=== PATIENT | female | born 1955 | race Caucasian/White ===

== ENCOUNTER 2022-12-23 14:26 | Outpatient (CLI) | payer MEDICARE, BC, SELFPAY | END 2022-12-23 14:27 | disposition home or self-care (01) | LOC: LAB 14:29 | PROVIDERS: PCP Orthopaedic Surgery; Visit Provider Orthopaedic Surgery | DX: Z01.818 Encounter for other preprocedural examination (principal) | CPT/HCPCS: 36415; 86850; 86900; 86901 ==

== ENCOUNTER 2022-12-26 06:43 | Day surgery (SDC) | payer MEDICARE, BC, SELFPAY ==
[2022-12-26] VITALS (25 sets, daily range): BP systolic 94–201; BP diastolic 45–86; PULSE 46–66; RESP 11–18; TEMP 36.1–36.6; O2SAT 90–100; BMI 24.6
--- OUTSIDE RECORDS SUMMARY | 2022-12-26 06:46 | XMS_ITS | Continuity of Care Document ---
Author Name Unknown Organization [facility] [address] [facility] [address] [place] [address] Phone Care Team Providers Care Medical Delivery Technician Name Role Phone Cornelio Flores DO Unavailable Unavailable Allergies, Adverse Reactions, Alerts Substance Reaction Status Criticality Penicillins Active No Information Medications Medication Instructions Dosage Effective Dates (start - stop) Status Comments levothyroxine 100 mcg tablet take 1 tablet by oral route every day 100 MCG - Active atenolol 50 mg-chlorthalidone 25 mg tablet take 1 tablet by oral route every day 1.00 tablet - Active acetaminophen 500 mg tablet take 2 tablet by oral route every day as needed 1000 MG - Active ibuprofen 200 mg tablet take 1 tablet by oral route every day as needed 200 MG - Active Vitamin D3 5,000 unit tablet take 1 by Oral route every day 1 - Active CALCIUM CARBONATE (unknown strength) take 1 Tablet by Oral route every day Not Available - Active Procedures Procedure Date Dna Antibody, Single Strand Dna Antibody, Barrow Nuclear Antigen Antibodies Office/Outpatient Visit, Est Office/Outpatient Visit, New Routine Venipuncture Specimen Handling Assay Of Serum Albumin Assay Of Ck (Cpk) Assay Of Creatinine Assay Alkaline Phosphatase Transferase (Ast) (Sgot) Assay Of Blood/Uric Acid Antinuclear Antibodies Advance Directives Directive Yes / No Effective Date File Name No Information Encounters Encounter Description Practice Location Reason(s) For Visit Diagnoses Date Provider Providers Copied on Encounter [facility] , [address], [place], [address], [place] tel:[phone] [facility] , No Information 6 Mark Grimes. [facility] [address], [place], [address], [place]. tel:[phone] Referring Provider: Cornelio Gross, [facility] [address], [place], [address]. tel:[phone] Office/Outpa tient Visit, Est [facility] , [address], [place], [address], [place] tel:[phone] [facility] , Musculoskele bradford pain (chief complaint)Mavis int Pain (chief complaint)Ab normal Lab Study (chief complaint) Abnormal immunologica l finding in serum, unspecifiedM yalgiaPain in unspecified jointPrimary generalized (osteo)arthr itisRaynaud' s syndrome without gangrene 6 Mark Grimes. [facility] [address], [place], [address], [place]. tel:[phone] Referring Provider: Cornelio Gross, [facility] [address], [place], [address]. tel:[phone] Office/Outpa tient Visit, New [facility] , [address], [place], [address], [place] tel:[phone] [facility] , Dermatomyosi tis (chief complaint)El evated CPK (chief complaint)Mu sculoskeleta l Pain (chief complaint) Pain in unspecified jointDermato polymyositis , unspecified, organ involvement unspecifiedP ain in right hand May-0 3-201 6 Mark Grimes. [facility] [address], [place], [address], [place]. tel:[phone] Referring Provider: [facility] [address] [place], [address]. tel:[phone] [facility] , [address], [place], [address], [place] tel:[phone] [facility] , No Information Mark Grimes. [facility] [address], [place], [address], [place]. tel:[phone] Family History Family Member Type Diagnosis Age At Onset Mother Problem (finding) osteoporosis Payers Payer name Insurance type Covered alliance party ID Lynnette hwang(s) [facility] [id number] Social History Type Description Quantity Date Captured Comments Sex Female Smoking Status No Information Chief Complaint And Reason For Visit No Information Reason For Referral Reason For Referral No Information Plan Of Treatment Date Type Action Status Goal Tobacco cessation counseling completed Goal Tobacco cessation counseling completed History Of Present Illness Encounter Date Complaint History Of Prese nt Illness Musculoskeletal pain Joint Pain Abnormal Lab Study Dermatomyositis Elevated CPK Musculoskeletal Pain Functional Status Date Functional Assessmen t No Information Instructions Date Instruction Additional Infor mation No Information Assessments Type Assessment Date No Information Patient Care Teams Name Effective Dates (start - stop) Status Members No Information
[2022-12-26] MEDS: OXYCODONE (CR) 10 MG TAB.ER.12H PO (07:21)
[2022-12-26] MEDS: CELECOXIB 200 MG CAPSULE PO (07:21)
[2022-12-26] MEDS: ACETAMINOPHEN 500 MG TABLET 1000 MG PO ×3 (07:21→22:35)
[2022-12-26] MEDS: LACTATED RINGERS 1000 ML 1,000 ML 100 ML IV ×2 (07:30→10:13)
[2022-12-26] MEDS: SODIUM CHLORIDE 0.9 % (FLUSH) 10 ML SYRINGE IVF (07:30)
[2022-12-26] MEDS: fentaNYL 100 MCG/2 ML inj IVP (07:43)
[2022-12-26] MEDS: MIDAZOLAM HCL 1 MG/ML inj IVP (07:43)
--- NOTE | 2022-12-26 08:00 | CRLHL7_ITS ---
For Patients: As a result of the Century Cures Act, medical imaging exams and procedure reports are released immediately into your electronic medical record. You may view this report before your referring provider. If you have questions, please contact your health care provider. INDICATION: Left hip arthroplasty. Intraoperative evaluation. TECHNIQUE: Fluoroscopically guided intraoperative evaluation at the time of a left hip arthroplasty. FINDINGS: 75.2 seconds fluoroscopy time utilized intraoperatively. Left hip arthroplasty. Two acetabular screws are present. IMPRESSION: 75.2 seconds fluoroscopy time utilized intraoperatively. Dictated by Avtar Watson MD @ 12/26/2022 11:52:09 AM (Electronically Signed)
[2022-12-26] MEDS: TRANEXAMIC ACID 100 MG/ML INJ 1000 MG IV (08:10)
[2022-12-26] MEDS: CEFAZOLIN 2 GM INJ IVP (08:10)
--- NOTE | 2022-12-26 08:38 | W.ANESCHARGE ---
Anesthesia Charges Start Date/Time Anesthesia Start Date: 12/26/22 Anesthesia Start Time: 07:56 Stop Date/Time Anesthesia Stop Date: 12/26/22 Anesthesia Stop Time: 11:33
--- NOTE | 2022-12-26 08:39 | P.NB_ITS ---
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 Images saved: Yes Medications given in 5ml increments after negative aspiration: Ropivicaine %: 0.5 mL: 30 Needle gauge: 20 Decadron (mg): 10 Precedex (mcg): 25 Patient tolerated procedure well: Yes Additional comments: Needle noted below psoas tendon needle noted adjacent to LFCN Block Charges Block Charge (with Pro Fee): Other Periph Nerve Block Use of Ultrasound Machine for Block: Yes- US Guidance/pain block
--- NOTE | 2022-12-26 08:40 | SUR.OPER ---
PATIENT QUESTIONS ANSWERED SATISFACTORILY PREOPERATIVELY. PATIENT BROUGHT TO OR #3 PER CART AFTER ADMINISTRATION OF A BLOCK. Patient positioned supine on OR #3 bed. The perioperative team supported arms bilaterally on arm boards. Final approval of positioning by surgeon.
--- NOTE | 2022-12-26 10:47 | CRLHL7_ITS ---
For Patients: As a result of the Century Cures Act, medical imaging exams and procedure reports are released immediately into your electronic medical record. You may view this report before your referring provider. If you have questions, please contact your health care provider. INDICATION: Follow up left hip arthroplasty. TECHNIQUE: AP pelvis and cross table lateral view of the left hip performed postoperatively. FINDINGS: Left hip arthroplasty. The components are adequately aligned and well seated. Two surgical screws traverse the superior left acetabulum. Air within the soft tissues and joint space related to the surgery. Irregularity of the left superior pubic ramus and possibly inferior pubic ramus may reflect old fractures. Please correlate clinically. IMPRESSION: Left hip arthroplasty. The components are adequately aligned and well seated. Dictated by Avtar Watson MD @ 12/26/2022 3:18:32 PM (Electronically Signed)
--- NOTE | 2022-12-26 10:51 | P.ORPRC_ITS ---
Procedure Note Procedure: PREOPERATIVE DIAGNOSIS: Left hip osteoarthritis POSTOPERATIVE DIAGNOSIS: Left hip osteoarthritis NAME OF OPERATION: Left total hip arthroplasty SURGEON: Femi Bañuelos MD ASSEMBLER CHASSIS: Kathy Ayala PA-C, KARLEY Hanley IMPLANTS: 1. J[employer]J Allen # 44 multi hole ingrowth cup 2. 28 x 44 neutral polyethylene 3. Actis #4 standard collared ingrowth stem 4. 28+1.5 ceramic femoral head ANESTHESIA: General ESTIMATED BLOOD LOSS: 500 cc COMPLICATIONS: None SPECIMENS: None DRAINS: None PREOPERATIVE ANTIBIOTICS: Ancef 2 grams INDICATIONS: The patient is a 67-year-old with a longstanding history of severe, unrelenting left hip pain secondary to end-stage left hip osteoarthritis. Despite appropriate nonoperative management, including activity modification, use of an assist device, anti-inflammatories, [id number] pain medication, physical therapy and injections, they continue to have pain and disability. Operative intervention was offered. The risks, benefits and expected outcomes were discussed in detail. These included but were not limited to: Infection, bleeding, injury to blood vessel or nerve, venous thromboembolism. All questions were answered to their satisfaction. Use of an observation assistant was necessary throughout the case for patient positioning and safety, soft tissue retraction and closure. A modifier 22 should be added to this case. With the amount of bone loss on the acetabular side reconstruction was necessary. This more than doubled the time typically required to complete the case. PROCEDURE: The patient was placed supine on the [place] table. General anesthesia was administered. The observation assistant made sure the patient was properly positioned. The left hip was prepped and draped in the usual sterile fashion. The image intensifier was brought in for a perfect AP pelvis and a perfect double tear drop AP view of each hip which were used for intraoperative templating with our fluoroscopic guide. An oblique incision was made 3 cm distal and 3 cm lateral to the anterior superior iliac spine. The observation assistant retracted the soft tissues to protect them. Subcutaneous dissection was taken with electrocautery to the superficial fascia. The fascia was divided in line with the incision. Blunt dissection was carried medially to the tensor fascia marce and sartorius interval. Deep dissection was carried with electrocautery. The circumflex vessels were cauterized and divided. The capsule was exposed and then divided in a T-fashion, tagged with #1 Ethibond sutures. Retractors were placed in the joint, held by the observation assistant. The corkscrew was was not used, in order to preserve the head to use as a graft. The neck cut was made just proximal to the intertrochanteric ridge. The femoral head was removed intact, taken to the back table for preparation as graft he. Acetabular retractors were placed, held by the observation assistant. The labrum was sharply debrided. The capsule was released. The 36 mm reamer was used in the pseudo acetabulum to bleeding bone. Articular surface of the femoral head was roughed up with oscillating saw. We then placed it in the pseudo acetabulum and provisionally fixed it with 2 guide pins. Guide pin placement was confirmed with the image intensifier in multiple views. We used the cannulated drill over the more central, lateral guide pin. We then placed a 50 mm AcuTrak screw. This was countersunk in the graft. The other guide pin was removed. We elected not to place another screw in the graft, for fear of fracturing it. The 37 mm reamer to the true medial wall of the bill moore's slough acetabulum. We then enlarged in 2 mm increments using the image intensifier for our reamer placement. We impacted the cup which had good purchase. We placed a 6.5 x 45 mm screw through the graft and up the ilium. Its placement was checked with the image intensifier in multiple planes. We placed a 2nd 6.5 mm x 20 mm screw, posteriorly into the ischium. Its placement was confirmed with the image intensifier in multiple views. The polyethylene was impacted. Attention was then turned to the proximal femur. The limb was placed in 140 degrees of external rotation, maximum extension and adduction. A significant amount of time was spent releasing the capsule to allow us to deliver the femur into the wound and complete the femoral side safely. Retractors were held by the observation assistant throughout the femoral preparation. The experimental box tester and canal finder were used. Broaches were used to a stable size. The calcar reamer was used. Trial components were placed. The hip was reduced and was found to be stable with appropriate soft tissue tension. Length and offset had been nicely restored using the image intensifier and our fluoroscopic guide. Trial components were removed. The stem was impacted. As we seated the stem on the calcar we cracked it down to the level of the lesser trochanter. Therefore, we placed the extractor on the stem and tapped it out of the canal. We placed a super cable just distal to our neck cut, proximal to the lesser trochanter. A 2nd super cable was placed just distal to the lesser trochanter. This anatomically reduced the fracture. We then tapped the femoral stem back into the canal. This did not gap the fracture. The stem is rotationally stable and is unable to be extracted with significant hand force on the trunnion. We placed the femoral head. We tested stability of the stem again by trying to extract it by hand. This was not possible. Again, the hip was reduced and was found to be stable with appropriate soft tissue tension. Length and offset had been nicely restored. The observation assistant did a three minute dilute Betadine solution soak. The observation assistant irrigated the wound with 3 liters of normal saline via pulse lavage. The observation assistant repaired the anterior capsule with a #1 Vicryl and our previously placed Ethibond sutures. The observation assistant closed the fascia over the tensor fascia marce with a #1 PDO Stratafix, subcutaneous tissues with 2-0 Vicryl, skin with a running 3-0 Stratafix and glue. A dry dressing was applied by the observation assistant. Sponge and needle counts were correct x 2. The patient tolerated the procedure well; there were no apparent complications. They were awakened and extubated in the operating room, sent to the Post-Anesthesia Care Unit in satisfactory condition. PLAN: 1. The patient will be mobilized with physical therapy, weight-bearing as tolerates 2. Xarelto x 5 days then aspirin x 30 days will be used for DVT prophylaxis 3. The patient will be discharged once medically appropriate
--- NOTE | 2022-12-26 12:22 | W.ANESCHARGE ---
Anesthesia Charges Start Date/Time Anesthesia Start Date: 12/26/22 Anesthesia Start Time: 07:56 Stop Date/Time Anesthesia Stop Date: 12/26/22 Anesthesia Stop Time: 11:33
[2022-12-26] MEDS: CEFAZOLIN 2 GM in 0.9 % SODIUM CHLORIDE Mini-bag 100 ML IVPB ×2 (14:17→22:38)
--- NOTE | 2022-12-26 16:04 | PC.NURSE ---
Pt arrived from PACU via hospital bed with 2 staff members to room 256 @ 1215pm s/p LTHA anterior approach with Dr. Bañuelos. Please see initial assessment from PACU and frequent post op VS. Pt has denied pain since arrival to floor. Oxygen @ 2 LITERS/NC d/to drop in sats when pt falls asleep, snoring heard w/deep sleep and sats 67-70%. Dr. Ayala aware, new oxygen probe obtained and teaching on IS. She had an oxymask on briefly between 1300 and 1330 d/to low sats. Small amt of CL tray for lunch d/to c/o sore throat. Gustabo Diana visiting at bedside. Pt received 2gms of IV Ancef per post op routine. Hospitalist plans to evaluate patient post op. Report to Maria Fernanda Durant RN for evening shift. Initiated bed alarms to prevent falls.
--- NOTE | 2022-12-26 16:32 | P.IMCN_ITS ---
Date of Consult Patient: Alexis Patient Consult date: 12/26/22 Requesting Physician: Orthopedics Primary Care Provider: Eva He MD Consult Narrative Reason for consult: Management of medical problems following left hip arthroplasty Narrative: Seda Gavin is a 67 year old female who underwent left total hip arthroplasty with Dr. Bañuelos today. He is requesting consultation for management of medical problems. Postoperatively patient reports generally doing well. She is having no significant pain. She has no dyspnea but nursing staff note she is hypoxic. Her O2 sats are in the 80s on room air and in the 90s on 2 L per nasal cannula. She is relatively sleepy. She does have a history of pneumonia diagnosed in October when she was hospitalized in [place]. She subsequently has had follow-up chest x-ray, most recently December 16, which showed resolution of her pneumonia and minimal basilar fibrosis. She smokes 5 cigarettes per day as well. No other recent illness. Review of Systems Narrative: Primary recent issues are her pneumonia 2 months ago with symptoms now resolved and her ongoing severe left hip arthritis which has has been quite disabling. No personal or family history of problems with anesthesia, bleeding disorder or thrombophilia [facility] Medical History (Updated 12/26/22 @ 16:46 by Anirudh Ayala MD) Smoking ?F17.200 - Nicotine dependence, unspecified, uncomplicated (ICD-10) Osteoporosis ?M81.0 - Age-related osteoporosis without current pathological fracture (ICD- 10) Pneumonia ?J18.9 - Pneumonia, unspecified organism (ICD-10) Myasthenia gravis ?G70.00 - Myasthenia gravis without (acute) exacerbation (ICD-10) Hypothyroid ?E03.9 - Hypothyroidism, unspecified (ICD-10) Hypertension ?I10 - Essential (primary) hypertension (ICD-10) Surgical History (Updated 12/26/22 @ 16:40 by Anirudh Ayala MD) H/O: hysterectomy ?Z90.710 - Acquired absence of both cervix and uterus (ICD-10) S/P trigger finger release (12/17/07) ?Z98.890 - Other specified postprocedural states (ICD-10) Family History Father Myocardial infarction Brother High blood pressure Mother Dementia Social History (Updated 12/26/22 @ 16:41 by Anirudh Ayala MD) Narrative: She lives alone in her own home in [place]. She has 4 steps to get into her house. She has temporarily set up to live on 1 level until her mobility improves. Her sister will be staying with her during the day and she has hired an aide to stay with her at night postoperatively. Code status is full. Son is healthcare power of tax associate attorney. She smokes about 5 cigarettes a day. She does not drink alcohol. What is your current living situation?: I presently have a place to live Problems where you live: no known problems Problems where you live details: none In the past 12 months, utilities in danger of being shut off: no In the past 12 mos, have been you worried that your food would run out before you had money to buy more?: never true In the past 12 mos, the food you bought just didn't last and you didn't have money to buy more?: never true Smoking Status: Current every day smoker What tobacco products do you use: cigarettes Years smoked: 40 Do you use any of these nicotine containing products: None Second hand tobacco smoke exposure: No How often do you have a drink containing alcohol: never AUDIT-C Alcohol total score: 0 Non-prescribed substance use: denies use How often does anyone, including family, friends and others, physically hurt you : never How often does anyone, including family, friends and others, insult or talk down to you: never How often does anyone, including family, friends and others, threaten you with harm: never How often does anyone, including family, friends and others, scream or curse at you: never service: No Meds Home Medications and Allergies Home Medications Medication Instructions Recorded Confirmed Type levothyroxine 100 mcg tablet 100 mcg PO DAILY 08/16/22 12/26/22 History atenolol 100 mg tablet 100 mg PO DAILY 12/26/22 12/26/22 History atorvastatin 10 mg tablet (Lipitor) 10 mg PO QHS 12/26/22 12/26/22 History atorvastatin 40 mg tablet 40 mg PO QPM 12/26/22 12/26/22 History losartan 50 mg tablet 50 mg PO DAILY 12/26/22 12/26/22 History Home Medication Comments: Occasionally takes ibuprofen and acetaminophen. Was on Voltaren 75 mg daily but held this a week before surgery Takes calcium and vitamin-D daily Uses an albuterol inhaler about once a day Allergies Allergy/AdvReac Type Severity Reaction Status Date / Time amlodipine Allergy Verified 12/26/22 07:33 amoxicillin AdvReac Verified 12/26/22 07:33 Erythromycin AdvReac Uncoded 08/21/22 13:52 Exam Narrative: Exam Narrative: She is sleepy but arouses to voice and touch. She has then alert and oriented to her circumstances. Eyes are normal. Oropharynx normal. Neck is supple without mass or adenopathy. Respirations are clear to auscultation except bibasilar crackles noted. These do not resolve with deep breathing and coughing. No wheezing. Cardiovascular: S1, S2, regular rate and rhythm. Abdomen: Bowel sounds active. Abdomen is soft without tenderness or mass. Extremities with intact pulses and sensation. She moves all 4 extremities well. Const: Vital Signs, click to edit/add: Vital Signs - 24 hr 12/26/22 07:30 12/26/22 07:40 12/26/22 07:45 Temperature 97.9 F Pulse Rate 60 60 61 Pulse Rate [Left P ulse Oximeter] Respiratory Rate 16 16 16 Blood Pressure 194/86 H 201/85 H 141/70 H Blood Pressure [Ri ght Arm] Pulse Oximetry 96 96 91 Oxygen Delivery Me thod Room Air Nasal Cannula Nasal Cannula Oxygen Flow Rate 2 4 12/26/22 07:50 12/26/22 10:30 12/26/22 11:30 Temperature 97 F L 97.7 F Pulse Rate 51 L 51 L 48 L Pulse Rate [Left P ulse Oximeter] Respiratory Rate 16 16 16 Blood Pressure 142/74 H 104/50 L Blood Pressure [Ri ght Arm] 127/56 L Pulse Oximetry 96 98 Oxygen Delivery Me thod Nasal Cannula Nasal Cannula Aerosol Mask Oxygen Flow Rate 4 10 12/26/22 11:35 12/26/22 11:40 12/26/22 11:45 Temperature Pulse Rate 46 L 46 L 47 L Pulse Rate [Left P ulse Oximeter] Respiratory Rate 14 11 L 11 L Blood Pressure 104/50 L 94/45 L 98/47 L Blood Pressure [Ri ght Arm] Pulse Oximetry 100 100 100 Oxygen Delivery Me thod Room Air Oxygen Flow Rate 12/26/22 11:50 08/24/23 11:55 12/26/22 12:00 Temperature 97.4 F L 97.4 F L Pulse Rate 51 L 55 L 51 L Pulse Rate [Left P ulse Oximeter] Respiratory Rate 12 12 14 Blood Pressure 123/54 L 102/46 L 107/53 L Blood Pressure [Ri ght Arm] Pulse Oximetry 99 95 96 Oxygen Delivery Me thod Oxygen Flow Rate 12/26/22 12:05 12/26/22 12:16 12/26/22 12:17 Temperature 97 F L Pulse Rate 50 L Pulse Rate [Left P ulse Oximeter] 59 L 50 L Respiratory Rate 14 16 16 Blood Pressure 130/59 L Blood Pressure [Ri ght Arm] 120/51 L 127/59 L Pulse Oximetry 94 99 93 Oxygen Delivery Me thod Nasal Cannula Room Air Oxygen Flow Rate 2 12/26/22 12:30 12/26/22 12:45 12/26/22 13:00 Temperature Pulse Rate Pulse Rate [Left P ulse Oximeter] 48 L 48 L 51 L Respiratory Rate 16 16 16 Blood Pressure Blood Pressure [Ri ght Arm] 123/53 L 116/63 111/49 L Pulse Oximetry 90 99 94 Oxygen Delivery Me thod Nasal Cannula Nasal Cannula Nasal Cannula Oxygen Flow Rate 2 2 12/26/22 14:00 Temperature Pulse Rate Pulse Rate [Left P ulse Oximeter] 59 L Respiratory Rate 16 Blood Pressure Blood Pressure [Ri ght Arm] 116/51 L Pulse Oximetry 98 Oxygen Delivery Me thod Nasal Cannula Oxygen Flow Rate 2 Documenting provider has reviewed patient's vital signs: yes Imaging Chest x-ray: Radiologist's impression: 12/16/2022 INDICATION: Community acquired pneumonia of the right lower lobe of the lung. ? TECHNIQUE: Two-view chest. ? COMPARISON: November 27, 2022. ? FINDINGS: Both lungs are mildly hyperinflated. Attenuation of the pulmonary vascularity in the upper lobes. Minimal basilar fibrosis. Calcified granuloma left lung base. Overall heart size is toward the upper limit of normal. There is no evidence for congestive heart failure or active pneumonia. Lower thoracic/lumbar scoliotic curvature. Mild anterior wedging/partial compression fracture of approximately T5, T7, and T9. These appear chronic. ? IMPRESSION: Chronic changes as described. No acute cardiopulmonary process identified. No evidence for active pneumonia. ? Assessment and Plan Assessment and plan (1) Status post left hip replacement: Problem comment: 12/26/2022 Dr. Bañuelos Status: Acute (2) Hypoxia: Problem comment: Postoperative hypoxia likely due to combination of factors including sedation from surgery as well as some underlying lung disease, possibly fibrosis or COPD. Currently asymptomatic but requiring 1-2 L per nasal cannula. Anticipate this need for oxygen will resolve over the next day. Status: Acute (3) Myasthenia gravis: Problem comment: Twenty years ago she had relatively mild myasthenia gravis involving her eyes only. This causes some diplopia. She was briefly treated with prednisone and has not been treated long-term for this. She apparently still has antibodies but no symptoms and no treatment. I do not think current hypoxia is due to respiratory failure from myasthenia gravis. Status: Acute (4) Pneumonia: Problem comment: Hospitalized for pneumonia in October 2022. Radiographically and clinically resolved by December 2022 Status: Acute (5) Osteoporosis: Problem comment: Plans to initiate anti resorptive therapy with her primary care doctor. Status: Acute (6) Smoking: Status: Acute (7) Hypertension: Problem comment: Blood pressures are soft postoperatively. Cut beta-marcelino in half and hold losartan for the 1st day postop Status: Acute Plan Patient will be treated in the hospital for postoperative pain. Routine therapies. Monitoring of vital signs. Evaluation and management of mild hypoxia. Anticipate discharge to home if doing well tomorrow. Total time spent today is 55 minutes, 40 minutes in coordination of care discussing with patient son and other providers ongoing evaluation management of postoperative care
[2022-12-26] MEDS: OXYCODONE 5 MG TABLET PO ×2 (18:23→22:37)
[2022-12-26] MEDS: LACTATED RINGERS 1000 ML 1,000 ML 75 ML IV (18:24)
--- NOTE | 2022-12-26 19:31 | PC.NURSE ---
End of shift-- Pleasant and cooperative, alert and oriented patient. VSS and pt is afebrile. SPO2 noted to be as low as 83% on RA. Maintained >90% on 2L per n.c. Dressing to left hip is C/D/I and CMS is WNL. She c/o pain which she rated as high as 8 out of 10 with ambulation and was given 2.5mg of Oxycodone in addition to scheduled Tylenol. Crackles auscultated in bilateral bases of lungs posteriorly and MD is aware. Pt encouraged to use IS. She denied nausea and ate a regular diet without difficulty. Pt voided 300ml of concentrated urine this shift. She was up to the chair and commode with assist of 1, belt and walker and tolerated it fair. Report to MONY Hamilton.
[2022-12-26] MEDS: SENNOSIDES 1 TAB TABLET 2 TAB PO (22:37)
[2022-12-26] MEDS: ATORVASTATIN CALCIUM 40 MG TABLET PO (22:38)
[2022-12-27 03:00] VITALS: BP 133/66; PULSE 58; RESP 18; TEMP 36.6; O2SAT 98
[2022-12-27 06:39] LABS: Basophils Percent Auto 0.1 % (0.0-3.0); Eosinophils Percent Auto 0.1 % (0.0-7.0); Hematocrit 32.9 % (33.0-51.0); Hemoglobin* 10.7 gm/dL (12.0-16.0); Immature Granulocytes Pct Auto 0.3 %; Mean Corpuscular HGB Conc 33 gm/dL (32-36); Mean Corpuscular Hemoglobin 32 pg (26-34); Mean Corpuscular Volume 99 fL (80-100); Monocytes Percent Auto 9.7 % (0.0-11.0); Neutrophils Percent Auto 75.8 % (42.0-72.0); Platelet Count* 311 K/uL (140-440); RDW Coefficient of Variation % 13.7 % (11.5-15.5); Red Blood Count 3.32 m/uL (4.00-5.20); White Blood Count* 14.47 K/uL (4.50-11.00)
[2022-12-27] MEDS: OXYCODONE 5 MG TABLET PO (06:40)
[2022-12-27] MEDS: LEVOTHYROXINE 100 MCG TABLET PO (06:40)
[2022-12-27 06:42] LABS: Slide Review Reflex No
[2022-12-27 06:54] LABS: Potassium* 4.4 mmol/L (3.6-5.1); Sodium* 130 mmol/L (135-149)
--- NOTE | 2022-12-27 06:54 | PC.NURSE ---
Pt pleasant and cooperative. Up to the chair last eveing for about 3hr. She tolerated this well. Up with SB assist andgait belt and walker. Pain well controlled with Tylenol and oxycodone. Alona is CDI. Plan to go home today with some assistance from a home health worker,
[2022-12-27 06:57] LABS: Blood Urea Nitrogen* 20 mg/dL (7-30); Creatinine* 0.5 mg/dL (0.5-1.5); Est. Creatinine Clearance* 45.88; Estimated Glomerular Filt Rate 102 ml/min
[2022-12-27 07:00] VITALS: BP 123/59; PULSE 73; RESP 16; TEMP 36.6; O2SAT 89
--- NOTE | 2022-12-27 07:45 | PM.ORPN ---
Subjective Subjective Time Seen by Provider: 07:45 Date Seen: 12/27/22 Principal diagnosis: Status post left hip replacement, severe deformity 12/26/2022 Interval history: Seda is comfortable this morning. She is looking forward to discharging to home today. She has 4 steps to get into her home. Ortho Exam Narrative Exam Narrative: Alert and oriented x3. Patient is in no acute distress. Converses without labored breathing. Hearing is grossly intact. Ambulates with a walker. Examination of the left hip shows the dressing is intact. CMS intact left lower extremity. No foot drop. Very minimal edema about the hip. No bruising. Scab over the knee (from psoriasis she states) no erythema. No sign of infection left lower extremity. Bilateral calves are soft and nontender. Const Vital Signs, click to edit/add: Vital Signs - 24 hr 12/26/22 07:50 12/26/22 10:30 12/26/22 11:30 Temperature 97 F L 97.7 F Pulse Rate 51 L 51 L 48 L Pulse Rate [Left Dorsalis Pedis] Pulse Rate [Left Pulse Oximeter] Respiratory Rate 16 16 16 Blood Pressure 142/74 H 104/50 L Blood Pressure [Right Arm] 127/56 L Pulse Oximetry 96 98 Oxygen Delivery Method Nasal Cannula Nasal Cannula Aerosol Mask Oxygen Flow Rate 4 10 12/26/22 11:35 12/26/22 11:40 12/26/22 11:45 Temperature Pulse Rate 46 L 46 L 47 L Pulse Rate [Left Dorsalis Pedis] Pulse Rate [Left Pulse Oximeter] Respiratory Rate 14 11 L 11 L Blood Pressure 104/50 L 94/45 L 98/47 L Blood Pressure [Right Arm] Pulse Oximetry 100 100 100 Oxygen Delivery Method Room Air Oxygen Flow Rate 12/26/22 11:50 12/26/22 11:55 12/26/22 12:00 Temperature 97.4 F L 97.4 F L Pulse Rate 51 L 55 L 51 L Pulse Rate [Left Dorsalis Pedis] Pulse Rate [Left Pulse Oximeter] Respiratory Rate 12 12 14 Blood Pressure 123/54 L 102/46 L 107/53 L Blood Pressure [Right Arm] Pulse Oximetry 99 95 96 Oxygen Delivery Method Oxygen Flow Rate 12/26/22 12:05 12/26/22 12:16 12/26/22 12:17 Temperature 97 F L Pulse Rate 50 L Pulse Rate [Left Dorsalis Pedis] Pulse Rate [Left Pulse Oximeter] 59 L 50 L Respiratory Rate 14 16 16 Blood Pressure 130/59 L Blood Pressure [Right Arm] 120/51 L 127/59 L Pulse Oximetry 94 99 93 Oxygen Delivery Method Nasal Cannula Room Air Oxygen Flow Rate 2 12/26/22 12:30 12/26/22 12:45 12/26/22 13:00 Temperature Pulse Rate Pulse Rate [Left Dorsalis Pedis] Pulse Rate [Left Pulse Oximeter] 48 L 48 L 51 L Respiratory Rate 16 16 16 Blood Pressure Blood Pressure [Right Arm] 123/53 L 116/63 111/49 L Pulse Oximetry 90 99 94 Oxygen Delivery Method Nasal Cannula Nasal Cannula Nasal Cannula Oxygen Flow Rate 2 2 12/26/22 14:00 12/26/22 15:00 12/26/22 15:00 Temperature Pulse Rate Pulse Rate [Left Dorsalis Pedis] Pulse Rate [Left Pulse Oximeter] 59 L 58 L Respiratory Rate 16 16 16 Blood Pressure Blood Pressure [Right Arm] 116/51 L 134/69 Pulse Oximetry 98 96 Oxygen Delivery Method Nasal Cannula Nasal Cannula Oxygen Flow Rate 2 2 12/26/22 16:00 12/26/22 17:00 12/26/22 18:00 Temperature 97 F L Pulse Rate Pulse Rate [Left Dorsalis Pedis] Pulse Rate [Left Pulse Oximeter] 60 61 65 Respiratory Rate 16 16 16 Blood Pressure Blood Pressure [Right Arm] 136/62 143/67 H 135/53 L Pulse Oximetry 96 96 96 Oxygen Delivery Method Nasal Cannula Nasal Cannula Nasal Cannula Oxygen Flow Rate 2 2 2 12/26/22 19:30 12/26/22 23:00 12/27/22 03:00 Temperature 97.6 F 97.8 F 97.8 F Pulse Rate Pulse Rate [Left Dorsalis Pedis] 66 Pulse Rate [Left Pulse Oximeter] 61 58 L Respiratory Rate 18 18 18 Blood Pressure Blood Pressure [Right Arm] 120/52 L 135/56 L 133/66 Pulse Oximetry 94 96 98 Oxygen Delivery Method Nasal Cannula Nasal Cannula Nasal Cannula Oxygen Flow Rate 2 2 2 Assessment and Plan Assessment and plan (1) Status post left hip replacement: Problem details: 12/26/2022 Dr. Bañuelos Status: Acute Assessment and Plan: Plan for discharge is today to home if they meet discharge criteria. DVT prophylaxis includes Xarelto 10 mg daily for total of 5 days, then aspirin 81 mg twice daily for 30 days, Luis stockings x1 month may remove for 1 hr per day, frequent ambulation Remove dressing 1 week. Observe wound and phone Orthopedics with any questions or concerns Use Ice on operative hip unrestricted. Return to clinic in 1 week with PA for a wound check Return to clinic in 6 weeks with surgeon Minimize narcotic use. Wean off and discontinue soon as possible. Activities as tolerated. No strenuous activity. Attend outpt PT. she states she has been using a walker for a year. We discussed general strengthening is also necessary with PT. (2) Hypoxia: Problem details: Postoperative hypoxia likely due to combination of factors including sedation from surgery as well as some underlying lung disease, possibly fibrosis or COPD. Currently asymptomatic but requiring 1-2 L per nasal cannula. Anticipate this need for oxygen will resolve over the next day. Status: Acute (3) Myasthenia gravis: Problem details: Twenty years ago she had relatively mild myasthenia gravis involving her eyes only. This causes some diplopia. She was briefly treated with prednisone and has not been treated long-term for this. She apparently still has antibodies but no symptoms and no treatment. I do not think current hypoxia is due to respiratory failure from myasthenia gravis. Status: Acute (4) Pneumonia: Problem details: Hospitalized for pneumonia in October 2022. Radiographically and clinically resolved by December 2022 Status: Acute (5) Osteoporosis: Problem details: Plans to initiate anti resorptive therapy with her primary care doctor. Status: Acute (6) Smoking: Status: Acute (7) Hypertension: Problem details: Blood pressures are soft postoperatively. Cut beta-marcelino in half and hold losartan for the 1st day postop Status: Acute
[2022-12-27] MEDS: RIVAROXABAN 10 MG TABLET PO (09:04)
[2022-12-27] MEDS: SENNOSIDES 1 TAB TABLET 2 TAB PO (09:04)
[2022-12-27] MEDS: atenoloL 50 MG TABLET PO (09:04)
[2022-12-27] MEDS: ACETAMINOPHEN 500 MG TABLET 1000 MG PO (10:06)
[2022-12-27 10:31] VITALS: O2SAT 90; O2SAT 94
--- NOTE | 2022-12-27 11:07 | W.PM.CROSSCO ---
Subjective Subjective Date Seen: 12/27/22 Principal diagnosis: Status post left hip replacement, severe deformity 12/26/2022 Interval history: Patient seen on day of discharge given hypoxia with activity. Sister at bedside during visit. She was seen by respiratory therapy and 3 part oxygen testing did not reveal a need for supplemental oxygen upon discharge. Recommend self-monitoring with home O2 monitor (patient has one at home) continued IS throughout the day when home, close f/u with PCP. Objective Objective Data Details: GEN: Alert and oriented, sitting comfortably in bed and nontoxic in appearance. Speaking in full sentences, on room air HEENT: EOMIs bilaterally, no scleral icterus CV: RRR, No concerning murmurs R: LCTA bilaterally without concerning wheezing, air movement adequate Ext: wwp, no concerning edema Skin: No concerning skin lesions or rashes on exposed skin Neuro: Nonfocal Psych: Appropriate Assessment and Plan Assessment and plan (1) Hypoxia: Problem comment: - likely multifactorial, appears patient has underlying lung disease (also recently hospitalizated for PNA) - did not meet criteria for home O2 with RT - self monitoring at home, continue IS, close PCP f/u - patient and sister verbalize understanding of plan on d/c (12/27/22) Status: Acute Plan - per above - otherwise appropriate for d/c home post L NARGIS
--- NOTE | 2022-12-27 11:20 | PC.SOCIAL ---
Discharge Planning: met with patient, Seda and sister, Mary. Mary will be staying with her sister for a while to help care for her. Seda's son and another friend are also available to help. SisterMary will assist Seda getting to and from therapy. Social work to follow up as needed.
== END 2022-12-27 11:30 | disposition home or self-care (01) ==
LOC: OR 06:45 → MEDSURG 06:50
PROVIDERS: PCP Internal Medicine; Visit Provider Orthopaedic Surgery
PROC: (CPT 27130; principal; 2022-12-26 08:00)
DX: M16.12 Unilateral primary osteoarthritis, left hip (principal); G89.18 Other acute postprocedural pain; R09.02 Hypoxemia; I10 Essential (primary) hypertension; M81.0 Age-related osteoporosis without current pathological fracture; F17.210 Nicotine dependence, cigarettes, uncomplicated
CPT/HCPCS: 27130; 1214; 36415; 64450; 73501; 76000; 76942; 82565; 84132; 84295; 84520; 85025; 97110; 97116; 97161; 97165; 97535; A9270; C1713; C1776; J0330; J0690; J1100; J1170; J2250; J2371; J2405; J2795; J3010; J3490; J7120